=== PATIENT | female | born 1980 ===

== ENCOUNTER 2019-11-17 10:12 | Outpatient (CLI) | payer BC | END 2019-11-17 10:13 | disposition home or self-care (01) | LOC: SONOGRAMA 10:12 | DX: E04.1 Nontoxic single thyroid nodule (principal) ==

== ENCOUNTER 2021-08-19 11:07 | Outpatient (CLI) | payer BC | END 2021-08-19 11:09 | disposition home or self-care (01) | LOC: SONOGRAMA 11:07 | PROVIDERS: ATTEND Pathology Anatomic Pathology & Clinical Pathology | DX: D48.7 Neoplasm of uncertain behavior of other specified sites (principal); D44.0 Neoplasm of uncertain behavior of thyroid gland ==